=== PATIENT | female | born 1985 | race Caucasian/White ===

== ENCOUNTER 2018-04-28 18:23 | Emergency (ER) | payer MEDICAID ==
[~2018-04-28] VITALS: Ht 152.4 cm; Wt 58.1 kg
[2018-04-28 18:28] VITALS: Ht 152.4 cm; Wt 58.1 kg
[2018-04-28 21:37] VITALS: BP 109/67
== END 2018-04-28 21:37 | disposition home or self-care (01) ==
LOC: ED 18:23
DX: M62.838 Other muscle spasm (principal); M25.512 Pain in left shoulder
CPT/HCPCS: J1885

== ENCOUNTER 2019-08-12 20:07 | Emergency (ER) | payer MEDICAID ==
[~2019-08-12] VITALS: Ht 154.9 cm; Wt 59.4 kg
[2019-08-12 20:19] VITALS: Ht 154.9 cm; Wt 59.4 kg
[2019-08-12 22:04] VITALS: BP 104/69
== END 2019-08-12 22:04 | disposition home or self-care (01) ==
LOC: ED 20:07
DX: N39.0 Urinary tract infection, site not specified (principal)
CPT/HCPCS: J1885